=== PATIENT | female | born 1965 | race Caucasian/White ===

== ENCOUNTER 2016-05-24 09:57 | Emergency (ER) | payer BC ==
--- NOTE | 2016-05-24 10:44 | ERNOTE ---
Date of Service: 05/24/16 Time Seen by Provider: 05/24/16 10:42 Stated Complaint: URI/SOB Presenting Symptoms:: cough Source: patient, RN notes reviewed Exam Limitations: no limitations Immunizations: IMMUNIZATION HX History of Influenza Vaccine No Hx Pneumococcal Vaccination No Allergies/Adverse Reactions: Allergies No Known Allergies Allergy (Verified 05/24/16 10:31) Home Medications: HOME MEDICATIONS Albuterol Sulfate [Albuterol Sulfate Hfa] 8.5 gm IH DAILY PRN 04/11/13 [Last Taken Unknown] predniSONE [Prednisone] 2 tab PO DAILY #14 tab 05/24/16 [Last Taken Unknown] - History of Present Ilness Narrative: 50 y/o female ambulatory to the ED for a cough that began 2 days ago. She has asthma and is concerned that she has bronchitis. She also reports nasal congestion. She has taken Dayquil (none today) and has used an albuterol inhaler. She states that the inhaler helps but she does not like using it because it makes her jittery. Date (Duration): 05/22/16 Associated Symptoms: Reports: cough, shortness of breath, wheezing, nasal congestion, lightheadedness. Denies: chest pain/soreness, facial pain, dizziness, earache, headache, sore throat, muscle aches, fever/chills Prior Treatment: Reports: recently seen, treated by physician - for insomnia. Denies: recently hospitalized Review of Systems - Review of Systems Constitutional: Present: fatigue, malaise EYE: Present: no symptoms reported ENT: Present: See HPI Respiratory: Present: See HPI Cardiology: Present: See HPI Gastrointestinal/Abdominal: Present: no symptoms reported Genitourinary: Present: no symptoms reported Musculoskeletal: Present: back pain, muscle pain. Absent: joint pain Skin: Absent: rash, lesions Neurological: Present: See HPI Endocrine: Present: no symptoms reported Hematologic/Lymphatic: Present: no symptoms reported Psych: Present: no symptoms reported - Patient's Past Medical History Patient History - Medical: No pertinent hx Patient History - Cardiac/Respiratory: Asthma Patient History - Cancer: No Hx of Cancer Patient History - Surgical Procedures: Hysterectomy, T & A, Hernia Repair Patient History - Other: None - Social History Living Situations: home Psych History: No pertinent hx Smoking Status: Never smoker Alcohol Use: none Drug Use: none - Immunizations Hx Pneumococcal Vaccination: No History of Influenza Vaccine: No Physical Exam - Physical Exam General Appearance: Present: wd/wn, alert, mild distress, other - appropriately dressed and groomed Eye Exam: Normal inspection: bilateral Ears, Nose, Throat: Present: nasal congestion, pharyngeal erythema - mild. Absent: abnormal TM (R), abnormal TM (L), sinus pain/drainage, pharyngeal swelling Neck: Present: normal inspection, nontender, supple Respiratory: Present: no respiratory distress, accessory muscle use, expiration (prolonged), wheezing, other - unable to talk in complete sentences Cardiovascular/Chest: Present: regular rate, rhythm, no murmur, normal peripheral pulses Extremity Exam: Present: normal inspection Neurological Exam: Present: alert, oriented, normal mood/affect, no motor/ sensory deficits Skin Exam: Present: normal color, warm/dry ED Progress - Results and Orders Patient's Lab Results:: I have reviewed the patient's lab results. - Vital Signs Patient's Vital Signs:: I have reviewed the patient's vital signs. Vital Signs: Vital Signs 05/24/16 10:27 Temperature 36.4 C L Pulse Rate 85 Respiratory 12 Rate Blood Pressure 130/86 O2 Sat by Pulse 99 Oximetry - X-Ray X-Ray #1 X-Ray: chest Interpretation: Reviewed by me X-ray Comments: FINDINGS: Chest PA Lateral * Hyperinflated lung volumes. No consolidation or mass. Central bronchial wall prominence noted. No pneumothorax or pleural fluid collections. Cardiac and mediastinal silhouettes are normal. Trachea is in normal position. Bones show degenerative changes of the spine. Partially visualized cervical spine hardware. IMPRESSION: Findings compatible with acute or chronic bronchitis versus reactive airways disease. Also consider COPD/emphysema, if the patient has history of smoking. Electronically signed by Dayan Pinto M.D.. - Progress/Reassessment Chief Complaint: Upper Respiratory Symptoms Progress:: Improved Progress Note-Subjective: 05/24/16 11:35 No improvement in lung sounds after Duoneb treatment, remains very wheezing with scattered rhonchi. Appears dyspeic, SpO2 98% on RA. CXR and labs ordered. 05/24/16 12:40 Dyspnea has improved, labs unremarkable, CXR consistent with acute asthma exacerbation. Prednisone 60 mg started in dept. Departure - Departure Clinical Impression: Asthma exacerbation, Upper respiratory infection, viral Disposition: Home self-care Condition: Stable Instructions: Upper Respiratory Infection, Adult, [id number], Asthma, Adult, [id number], Form - Excuse from Work, School, or Physical Activity Additional Instructions: Akil DM (generic ok) for cough Humidifier Use inhaler as directed Take prednisone in the mornings with food (start tomorrow) Return or follow up with your PCP as needed Referrals: Margarita Ruggiero, TECHNICAL TRAINING COORDINATOR [Primary Care Provider] - Prescriptions: predniSONE [Prednisone] 2 tab PO DAILY #14 tab
[2016-05-24] MEDS ORDERED: ALBUTEROL SULFATE/IPRATROPIUM 3 ML NEBU IH ONE ×2 (10:57→11:07)
--- OUTSIDE RECORDS SUMMARY | 2016-05-24 11:07 | XMS REPORT | Continuity of Care Document ---
:1965 Author Organization [facility] ([facility]) Address [address] [place] [address] Phone [phone] Care Team Providers Name Role Phone Unavailable Primary Care Provider Unavailable Source Comments This disclosure is being made pursuant to the Care Everywhere program, applicable federal and state laws, and may not contain all informaitonavailable regarding this patient.[facility] ([facility]) Active Allergies and Adverse Reactions Not on File Current Medications Not on file Active Problems Not on file Social History Tobacco Use Types Packs/Day Years Used Date Never Assessed Plan of Care Health Maintenance Due Date Last Done Comments HCV Screening 1965 Hepatitis B Vaccine (1 of 3 - Primary Series) 1965 Tdap Vaccine 06/11/1975 Lipid Disorder Screening 1982 MMR Vaccine 1982 Td Vaccine 1982 Cervical Cancer Screening 1994 Mammogram 2004 Colonoscopy 2014 Influenza Vaccine: Seasonal (#1) 10/11/2015 Results from Last 3 Months Not on file
[2016-05-24 11:12] VITALS: BP 138/79
[2016-05-24 11:49] LABS: Hematocrit 43.6 % (37.0-47.0); Hemoglobin 14.5 gm/dL (12.5-16.0); Mean Corpuscular Hemoglobin 30.3 pg (27-31); Mean Corpuscular Hgb Conc 33.3 g/dl (32-36); Neutrophil % 50.4 % (42-75.0); Platelet Count 275 K/mm3 (150-450); Red Blood Count 4.79 M/mm3 (4.2-5.4); Red Cell Distribution Width 12.5 % (11.5-14.0)
[2016-05-24 12:10] LABS: Albumin * 4.2 gm/dl (3.4-5.0); Anion Gap 15.7 mmol/L (6.8-13.8); BUN/Creatinine Ratio 13.3 (9.0-21.6); Bilirubin, Total 0.4 mg/dL (0.0-1.1); Ca. Corrected For Albumin 9.3 mg/dL (8.4-10.2); Calcium * 9.8 mg/dL (7.9-10.9); Carbon Dioxide 23.6 mmol/L (24-32.6); Potassium 3.3 mmol/L (3.4-4.6); Total Protein 8.1 gm/dL (6.2-8.2)
[2016-05-24] MEDS ORDERED: predniSONE 20 MG TABLET PO ONE (12:45)
[2016-05-24] MEDS ORDERED: predniSONE 20 MG TABLET ONE (12:51)
== END 2016-05-24 13:09 | disposition home or self-care (01) ==
LOC: ER 09:57
DX: J45.901 Unspecified asthma with (acute) exacerbation (principal); J06.9 Acute upper respiratory infection, unspecified